=== PATIENT | female | born 1930 | race Caucasian/White ===

== ENCOUNTER 2016-08-12 09:13 | Emergency (ER) | payer MEDICARE ==
[~2016-08-12] VITALS: Ht 157.5 cm; Wt 63.6 kg
[~2016-08-12 09:13] MED LIST: ACET-97 PO; MULT-1018 PO; NOMED; SULFAMETHOXAZOLE PO; TRIMETHOPRIM PO
[2016-08-12 09:16] VITALS: BP 123/82; PULSE 86; RESP 16; O2SAT 99
--- NOTE | 2016-08-12 09:22 | ED.REPORT ---
HPI-Extremity Problem Lower Date of Service Aug 12, 2016 ED Provider: Steven Morgan MD Pt is an 86 year old female with a hx of chronic back pain presenting to the ED complaining of left knee pain onset after falling down yesterday around 1600 and landing with her leg bent underneath her. The pt rolled over onto her knees and was able to stand, and did not have any pain until she woke up in the middle of the night to go to the bathroom. She denies any pain in the hip or ankle, any other injury, previous knee surgeries, or any other symptoms at this time. Nursing Notes Stated Complaint: KNEE PROBLEMS/FELL Chief Complaint: Extremity Trauma Nursing Notes Reviewed: Yes Allergies: Coded Allergies: Shellfish (Verified Allergy, Intermediate, Rash,Itching,, 08/12/16) Scheduled ([Trimethoprim/Sulfamethoxazole]) 1 TAB TABLET 1 TAB PO BID Acetaminophen (Acetaminophen) 500 Mg Tablet 500 MG PO BID Multivitamin (Multi Vitamin Daily) 1 Each Tablet 1 EACH PO DAILY Miscellaneous Medications No Historical Medication (No Historical Medication) Ea General Time Seen by MD: 09:21 Chief Complaint Knee injury left Hx Obtained From: Patient Arrived By: Walk-in Onset Occurred: Yesterday Symptom Duration: Since onset Caused by: Fall on ground Location: : Knee left Quality: Painful Severity: Current: Mild Severity: Maximum: Moderate Recent Healthcare: No recent doctor visit, No recent hospitalization Similar Sx Previous: No Past Medical History Past Medical History Chronic back pain Osteoporosis Past Surgical History 1. Tonsillectomy and adenoidectomy as a child. 2. Appendectomy as a child 3. Hysterectomy secondary to prolapse and rectocele, 30yrs ago 4. 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 Small bowel obstruction with laparotomy of a short section of small bowel by Dr. Khan in 2004 at [facility]. Smoking History Unknown if Ever Smoker Ambulatory Status Independent Review of Systems Constitutional: Denies: Fever, Weakness - generalized Musculoskeletal: Reports: Joint pain Complete sys rev & neg: except as marked. Respiratory: Denies: Shortness of breath Cardiovascular: Denies: Chest pain GI: Denies: Abdominal pain, Vomiting Physical Exam Initial Vital Signs Vital Signs (First) Date Time Temp Pulse Resp B/P Pulse Ox O2 Delivery O2 Flow Rate FiO2 08/12/16 09:16 36.7 86 16 123/82 99 Room Air Initial VS: Reviewed General/Constitutional: Well-developed, Well-nourished Head / Eyes: Atraumatic, Normocephalic, PERRL ENT: Mucous membranes moist, Conjunctiva normal, No scleral icterus Respiratory: No respiratory distress Abdomen / GI: No distention Upper Extremities: Vascular intact, Neuro intact, No swelling, No tenderness Skin: Warm, Dry, No cyanosis Neurologic: Alert, Oriented, Nonfocal Psychiatric: Mood/affect normal, Behavior normal, Normal thought content Lower Extremity / Pelvis / MS: Neurologic intact, Vascular intact Normal dorsalis pedis pulse and posterior tibial pulse. Normal sensation. Pt is able to stand. Lateral joint line tenderness. Anterior Drawer sign negative. Varus and valgus stress do not elicit pain or laxity Interpretation & Diagnostics X-Ray Interpretation Xray Interpretation: IMPRESSION: Osteopenia and degenerative changes of the left knee without acute fracture. Dictated by: Pavel Batista M.D. on 08/12/2016 at 9:50 X-Ray Ordered: Knee left Interpretation / Wet Read by: Interpret - Radiologist Re-Eval/Medical Decision Re-Evaluation/Progress : Time of Eval: 10:48 Patient Status: Condition improved Re-Evaluation/Progress Note: Discussed plan for discharge and checked splint application. Pt understands and agrees with plan. Counseled Regarding: Diagnosis, Lab results, Need for follow-up, When/why to return to ED Discharge & Departure Impression: Primary Impression: Contusion of left knee Encounter type: initial encounter Qualified Code: S80.02XA - Contusion of left knee, initial encounter Disposition: Home Discharge Condition All VS Reviewed: Yes Condition: Improved Patient Instructions: Knee Pain (ED) Additional Instructions: Your x ray does not show any sign of a fracture. Use your walker and wear the knee brace for the next week. Follow up with your primary care doctor at the end of next week if your knee isn't getting much better. Take Tylenol or Ibuprofen as needed for the pain. Return to the ER if you develop any new or worsening symptoms. Referrals: Stanislav Klein MD (PCP) Scribe Attestation Portions of this note were transcribed by Yanelis Gambino. I, Dr. Morgan personally performed the history, physical exam and medical decision-making; I reviewed and confirmed the accuracy of the information in the transcribed note. Signed by: Karen Gonzalez, 08/12/16 at 1049. copies to: Stanislav Klein MD, Kirk H MD Aug 12, 2016 09:22 YANELIS GAMBINO Aug 12, 2016 09:34
--- NOTE | 2016-08-12 10:53 | DRSVH ---
PROCEDURE: X-RAY LEFT KNEE, THREE VIEWS ([id number]) INDICATIONS: trauma TECHNIQUE: 3 views of the knee were acquired. COMPARISON: None. FINDINGS: Bones: No fractures or dislocations. No suspicious bony lesions. The bone mineralization is diffus richard decreased. There are mild/moderate degenerative changes within all 3 compartments of the knee. Soft tissues: No significant joint effusion. Soft tissue calcifications overlying the upper thigh a nd posterior popliteal region probably are vascular in origin. IMPRESSION: Osteopenia and degenerative changes of the left knee without acute fracture. Dictated by: Pavel Batista M.D. on 08/12/2016 at 9:50 Approved by: Pavel Batista M.D. on 08/12/2016 at 9:51
[2016-08-12 11:10] VITALS: BP 139/62; PULSE 72; RESP 12; O2SAT 100
== END 2016-08-12 11:16 | disposition home or self-care (01) ==
LOC: SED 09:13
DX: S80.02XA Contusion of left knee, initial encounter (principal); W19.XXXA Unspecified fall, initial encounter; Y93.9 Activity, unspecified; Y92.9 Unspecified place or not applicable; Y99.8 Other external cause status